=== PATIENT | male | born 1970 ===

== ENCOUNTER 2023-08-29 07:00 | Day surgery (SDC) | payer OTHER ==
[~2023-08-29 07:00] MED LIST: Midazolam 1 MG/ML 2 ML SDV ONE; fentaNYL 100 MCG/2 ML SDV ONE
[2023-08-29] MEDS ORDERED: Midazolam 1 MG/ML 2 ML SDV IV ONE (07:01)
[2023-08-29] MEDS ORDERED: fentaNYL 100 MCG/2 ML SDV IV ONE (07:01)
[2023-08-29] MEDS: Dextrose 5%-0.45% NaCl 1,000 ML IV SCH (07:10)
[2023-08-29] MEDS: fentaNYL 100 MCG/2 ML SDV IV ONE ×2 (07:25→07:26)
[2023-08-29] MEDS: Midazolam 1 MG/ML 2 ML SDV IV ONE ×2 (07:26→07:27)
== END 2023-08-29 08:56 | disposition home or self-care (01) ==
LOC: DL.ENDO 07:00
PROVIDERS: ATTEND Internal Medicine Gastroenterology
DX: K25.9 Gastric ulcer, unspecified as acute or chronic, without hemorrhage or perforation (principal); E66.09 Other obesity due to excess calories; Z68.33 Body mass index [BMI] 33.0-33.9, adult
CPT/HCPCS: 43239; 87077; J2250; J3010; J7042

== ENCOUNTER 2023-08-30 05:55 | Day surgery (SDC) | payer OTHER ==
[2023-08-30] MEDS ORDERED: fentaNYL 100 MCG/2 ML SDV IV ONE (05:56)
[2023-08-30] MEDS ORDERED: Midazolam 1 MG/ML 2 ML SDV IV ONE (05:56)
[2023-08-30] MEDS ORDERED: fentaNYL 100 MCG/2 ML SDV ONE (06:12)
[2023-08-30] MEDS ORDERED: Midazolam 1 MG/ML 2 ML SDV ONE (06:12)
[2023-08-30] MEDS: Dextrose 5%-0.45% NaCl 1,000 ML IV SCH (06:14)
[2023-08-30] MEDS: fentaNYL 100 MCG/2 ML SDV IV ONE ×2 (06:55→06:56)
[2023-08-30] MEDS: Midazolam 1 MG/ML 2 ML SDV IV ONE ×5 (06:56→07:07)
== END 2023-08-30 08:25 | disposition home or self-care (01) ==
LOC: DL.ENDO 05:55
PROVIDERS: ATTEND Internal Medicine Gastroenterology
DX: Z12.11 Encounter for screening for malignant neoplasm of colon (principal); D12.4 Benign neoplasm of descending colon; K62.1 Rectal polyp; K64.8 Other hemorrhoids; E66.09 Other obesity due to excess calories; Z68.33 Body mass index [BMI] 33.0-33.9, adult; Z88.0 Allergy status to penicillin
CPT/HCPCS: 45385; J2250; J3010; J7042